=== PATIENT | female | born 1955 | race Caucasian/White ===

== ENCOUNTER 2017-02-19 08:57 | Day surgery (SDC) | payer BC ==
[~2017-02-19] VITALS: Ht 160 cm; Wt 103.8 kg
--- NOTE | 2017-02-22 08:43 | OR ---
ADMIT: 02/19/2017 RM/LOC: W.02 [facility] MR#: [id number] [address] [address] HAYES SLAUGHTER [address] [place] [address] Operative/Delivery Room Report SEX: F AGE: 62 : 1955 SURGERY DATE: 02/19/2017 SURGEON: Mohit Solano MD BUSINESS LINE MANAGER: Carli Gordon APRN PREOPERATIVE DIAGNOSIS: Lumbar stenosis with neurogenic claudication, L4-L5, L5-S1 with S1 radiculopathy. POSTOPERATIVE DIAGNOSIS: Lumbar stenosis with neurogenic claudication, L4-L5, L5-S1 with S1 radiculopathy. PROCEDURE: Minimally invasive lumbar laminectomy with medial undercutting of the facets where necessary for decompression of L4-L5 and L5-S1 with intraoperative microsurgical dissection technique with microscope use with intraoperative fluoroscopy and physician interpretation of film. DESCRIPTION OF PROCEDURE: After gaining informed consent, the patient was taken to operative theater, placed under general endotracheal anesthesia in a supine position and turned prone on a [place] table. All pressure points purposely padded prior to performing the procedure. She was prepped and draped in sterile fashion. A time-out was utilized to ascertain the correct site and side of surgery as well as other pertinent patient historical information. Counts were obtained at the beginning and the end of the case with no change betwixt the two. Antibiotics were given within 1 hour of incision. Fluoroscope was brought into the field and the L5 level was delineated from the left. A stab incision was fashioned and then the sequentially dilating tubular retractor system was then passed down through this incision to the top of L5, then wended to L4 and S1. This was then docked at the L5-S1 level. The microscope was brought in the field and the rest of the case was done with microsurgical dissection technique. Various curettes, rongeurs, and a high- speed drill were used to fashion a laminectomy, cutting out towards the medial aspect of the facet at L5-S1, taking this down to the ligamentum flavum which was resected, there was large synovial cyst that was resected over this area as well. Once this was completed, I was able to sound out into the neural foramen. At this point, the tube was wended contralaterally and the lamina and facet was undercut resecting ligamentum flavum as widely as necessary to be able to sound into the neural foramen revealing what appeared to be patent transition for the nerve. At this point, the tube was wended up to L4-L5 region under similar fashion. With various curettes, rongeurs, and a high- speed drill, a laminectomy was fashioned with undercutting the facets, resecting ligamentum flavum, resecting out widely contralaterally as well as ipsilaterally, being able to sound into the neural foramen with no sign of further compressive etiology. Pristine hemostasis was obtained and attention was turned to closure. Each side of the paraspinous musculature was injected with 10 mL of 0.5% Marcaine and then the wound was closed with simple inverted ADMIT: 02/19/2017 RM/LOC: W.02 [facility] MR#: [id number] [address] [place] [id number] [place] [address] Operative/Delivery Room Report SEX: F AGE: 62 : 1955 interrupted 2-0 Vicryl and subcuticular 3-0 Stratafix on the skin. Ms. Gordon assisted with suction, retraction, and closure at the end of the case. COMPLICATIONS: None. ESTIMATED BLOOD LOSS: Charted. SPECIMEN: Synovial cyst. DISPOSITION: Extubated and taken to postanesthesia care unit. Mohit Solano MD/ jayson JOB #: [id number] CC: Mohit Solano, Attending Physician Sebastian Singh, Family Physician
[2017-03-04] MEDS ORDERED: FLEXERIL DPS5 MG PO (13:42)
[2017-03-04] MEDS ORDERED: ULTRAM DPS50 MG PO (13:42)
[2017-03-04] MEDS ORDERED: HYDROCODON-ACE1 EAC4 PO (13:42)
[2017-03-04] MEDS ORDERED: LEXAPRO DPS10 MG PO (13:42)
[2017-03-04] MEDS ORDERED: COZAAR DPS50 MG PO (13:43)
[2017-03-04] MEDS ORDERED: LASIX DPS40 MG PO (13:43)
[2017-03-04] MEDS ORDERED: LIPITOR DPS20 MG PO (13:43)
[2017-03-04] MEDS ORDERED: COREG DPS6.25 MG PO (13:43)
[2017-03-04] MEDS ORDERED: KLOR-CON M2020 ME1 PO (13:43)
[2017-03-04] MEDS ORDERED: Z-PACK PO (13:44)
[2017-03-04] MEDS ORDERED: FLONASE 0.05% D16 GM NS (13:44)
[2017-03-04] MEDS ORDERED: SYMBICORT160 MCG/6 IH (13:44)
== END 2017-02-19 18:23 | disposition home or self-care (01) ==
LOC: SSS 08:57 → WOR 08:57 → UNDOADMOB 08:57 → WOR 08:57 → EDSTATUS 16:05 → SSS 18:23
PROC: 01NB0ZZ Release Lumbar Nerve, Open Approach (ICD-10-PCS; principal; 2017-02-19)
DX: M48.06 Spinal stenosis, lumbar region (principal); M54.17 Radiculopathy, lumbosacral region; M51.26 Other intervertebral disc displacement, lumbar region; F17.200 Nicotine dependence, unspecified, uncomplicated; Z88.6 Allergy status to analgesic agent; Z90.49 Acquired absence of other specified parts of digestive tract; Z90.710 Acquired absence of both cervix and uterus; M71.38 Other bursal cyst, other site

== ENCOUNTER 2017-03-01 16:52 | Observation (INO) | payer BC ==
[~2017-03-01] VITALS: Ht 160 cm; Wt 101.5 kg
--- NOTE | ~2017-03-01 | ECH ---
Transthoracic Echocardiography Report (TTE) Demographics Patient Name LEONEL WILKINSON, Date of Study 03/02/2017 HAYES Wilson Patient Number [id number] Visit Number [id number] Date of 1955 Room Number 409 Gender Female Number Age 62 year(s) Referring Hung Michelle MD Professional Architect Hawa Bliss Physician Francisco Serrano MD [facility] Physician Interpreting Kira Banegas MD [employer] Department Chair Physician Supervising Ordering Rashad Mari MD/MLP Physician Nurse Stress Stogie Packer Conclusions Summary Technically adequate exam. The estimated left ventricular ejection fraction is 60-65%. There is trivial aortic regurgitation by color Doppler. Mild tricuspid regurgitation by color Doppler. There is mild pulmonary hypertension. The pulmonary pressure (RVSP) is 41 mmHg. Procedure Type of Study TTE procedure:Echo Complete SF. Procedure Date Date: 03/02/2017 Start: 01:47 PM Technical Quality: Adequate visualization Indications:Chest pain, Congestive heart failure, Hypertension and edema. Appropriate Use Criteria: 9 Height: 63 inches Weight: 235 pounds BSA: 2.07 m Rhythm: NSR HR: 80 bpm BP: 138/73 mmHg M-Mode/2D Measurements LV Diastolic Dimension: 5.3 cm LV Systolic Dimension: 2.97 cm LV Septum Diastolic: 0.82 cm LV PW Diastolic: 0.81 cm AO Root Dimension: 2.63 cm Cardiac Output: 5.33 l/min LA Dimension: 2.89 cm Cardiac Index: 2.57 l/min*m RV Diastolic Dimension: 2.92 cm LA volume index: 32 ml/m LVOT: 1.9 cm LVOT VTI: 23.49 cm RV Base: 3.9 cm LV Stroke volume: 66.57 ml RV Mid: 2.8 cm LV Stroke volume index: 32.16 ml/m TAPSE: 2.7 cm TDI-S': 14 cm/s Doppler Measurements AV Peak Velocity: 1.6 m/s MV Peak E-Wave: 1.12 m/s AV Peak Gradient: 10.24 mmHg MV Peak A-Wave: 0.84 m/s AV Mean Gradient: 6.2 mmHg MV E/A Ratio: 1.34 LVOT Peak Velocity: 1.02 m/s MV P1/2t: 48.5 msec AV Area (Continuity):1.66 cm MV Deceleration Time: 165.8 msec TR Velocity:3.1 m/s MV Area (PHT): 4.54 cm TR Gradient:38.44 mmHg PV Peak Velocity: 1.14 m/s Estimated RAP:3 mmHg PV Peak Gradient: 5.22 mmHg Estimated RVSP: 41 mmHg Estimated PASP: 41.44 mmHg E' Septal Velocity: 0.11 m/s A' Septal Velocity: 0.1 m/s E' Lateral Velocity: 0.1 m/s A' Lateral Velocity: 0.08 m/s RA Area: 15.42 cm Findings Left Ventricle Normal left ventricle size and function. Diastolic assessment reveals normal relaxation. Right Ventricle Normal right ventricle structure and function. Left Atrium Normal left atrial size. Right Atrium Normal right atrial size. Mitral Valve Normal mitral valve structure and function. Trivial mitral regurgitation by color Doppler. Aortic Valve The aortic valve is mildly sclerotic. There is trivial aortic regurgitation by color Doppler. Tricuspid Valve Normal tricuspid valve structure and function. Mild tricuspid regurgitation by color Doppler. There is mild pulmonary hypertension. The pulmonary pressure (RVSP) is 41 mmHg. Pulmonic Valve The pulmonic valve is not well visualized. Pericardial Effusion No evidence of pericardial effusion. Miscellaneous Visualized portions of the aortic root and ascending aorta appear normal in size. Pleural Effusion No evidence of pleural effusion. Signature
[2017-03-04] MEDS ORDERED: LEXAPRO DPS10 MG PO (13:42)
[2017-03-04] MEDS ORDERED: FLEXERIL DPS5 MG PO (13:42)
[2017-03-04] MEDS ORDERED: HYDROCODON-ACE1 EAC4 PO (13:42)
[2017-03-04] MEDS ORDERED: ULTRAM DPS50 MG PO (13:42)
[2017-03-04] MEDS ORDERED: LASIX DPS40 MG PO (13:43)
[2017-03-04] MEDS ORDERED: LIPITOR DPS20 MG PO (13:43)
[2017-03-04] MEDS ORDERED: KLOR-CON M2020 ME1 PO (13:43)
[2017-03-04] MEDS ORDERED: COREG DPS6.25 MG PO (13:43)
[2017-03-04] MEDS ORDERED: COZAAR DPS50 MG PO (13:43)
[2017-03-04] MEDS ORDERED: SYMBICORT160 MCG/6 IH (13:44)
[2017-03-04] MEDS ORDERED: Z-PACK PO (13:44)
[2017-03-04] MEDS ORDERED: FLONASE 0.05% D16 GM NS (13:44)
--- NOTE | 2017-03-09 10:17 | ER ---
ADMIT: 03/01/2017 RM/LOC: 409 [facility] MR#: [id number] [address] [address] HAYES SLAUGHTER [address] [place] [address] Emergency Room Report SEX: F AGE: 62 : 1955 DATE: 03/01/2017 ADDENDUM: CHIEF COMPLAINT: Shortness of breath. HISTORY OF PRESENT ILLNESS: This is a 62-year-old female who had a cyst removed between her vertebrae 10 days ago. She went home. The surgery was outpatient. She went home immediately afterwards. She said she has been doing fine until just yesterday. She said she started becoming more short of breath especially with exertion, noticed that her legs were swelling, so came into the ER. COURSE IN THE EMERGENCY ROOM: A CBC, CMP, troponin, BNP, i-STAT creatinine, CTA of her chest, and EKG were done. EKG is negative for any acute findings, over-read by Dr. Smith. CTA showed edema with some effusion. CBC was normal except for a white count of 13.1 and hemoglobin 11.4. CMP is normal except for albumin of 3.0. Troponin was normal. Her proBNP is 1909. I did speak with Dr. Solorzano regarding this patient for Dr. Singh, he is telecommunications repairer for him. We are going to admit. CLINICAL IMPRESSION: 1. Acute onset of congestive heart failure. 2. Hypertension. DISPOSITION: She is stable at this time and still on room air. ZURDO Moses / Mukul Juan MD / modl JOB #: [id number] CC: Sebastian Singh MD, Attending Physician Sebastian Singh MD, Family Physician
--- NOTE | 2017-03-15 14:23 | CO ---
ADMIT: 03/01/2017 RM/LOC: 409 [facility] MR#: [id number] [address] [address] HAYES SLAUGHTER [address] [place] [address] Consultation SEX: F AGE: 62 : 1955 DATE OF CONSULTATION: 03/02/2017 ATTENDING PHYSICIAN: Sebastian Singh CONSULTING PHYSICIAN: Lee Persaud MD REASON FOR CONSULT: 1. Edema and increased fluid retention. 2. Shortness of breath. This is Annie Khalil RN, scribing for Dr. Lee Persaud. HISTORY OF PRESENT ILLNESS: Hayes is a very pleasant 62-year-old female, whom I have been asked to see in Cardiology consultation by Dr. Singh for increased shortness of breath, orthopnea, and peripheral edema. She has no prior history of coronary artery disease. She is treated by primary care for hypertension and hyperlipidemia, and does have a history of tobacco use currently. She has significant family history of premature coronary artery disease with her brother having a myocardial infarction in his early 50s. Her father had two bypass surgeries in his 80s. She also reports a sister with history of ablation. Hayes presented to [facility] on the with complaints of increased shortness of breath. She had a back surgery about 10 days ago with a cyst removal and laminectomy, and at that time, tolerated the procedure well. She states that overall she felt that she had done well up until Wednesday. She then began experiencing increased nausea, and swelling in her lower extremity. On Wednesday, she felt lightheaded and dizzy with increased shortness of breath and had severe headache. She also describes one episode of chest discomfort lasting less than a minute and that has not returned. On Wednesday, her shortness of breath and orthopnea were so severe along with peripheral edema that she and her felt that she needed to proceed to the emergency room as she thought she was going to pass out from her severe symptoms. She was given 40 mg IV Lasix and diuresed quite a bit, and stated she did note improvement of her symptoms with that. She had about 3600 mL out, and of note, her weight on admit was 7 pounds up from 10 days prior. CTA of chest was performed, which was negative for pulmonary embolism. It did showed moderate pleural effusion, and some pulmonary edema as well. Kidney function is stable. Cardiac enzymes with troponin have been negative x3. Her white count is mildly elevated at 15.8, and proBNP is 3300. Currently, she is still nauseous and short of breath, and is still experiencing orthopnea, but does report improvement. She still has significant peripheral edema currently. PAST MEDICAL HISTORY: 1. Hypertension. 2. Hyperlipidemia. 3. Tobacco use. 4. Osteoarthritis. 5. Recent laminectomy. 6. Depression. ADMIT: 03/01/2017 RM/LOC: 409 [facility] MR#: [id number] [address] [address] LEONEL WILKINSON HAYES [address] [place] [address] Consultation SEX: F AGE: 62 : 1955 7. Cataracts. PAST SURGICAL HISTORY: Includes: 1. Laminectomy with cyst removal 10 days ago. 2. Hysterectomy. 3. C-sections x2. 4. Appendectomy. ALLERGIES: NO KNOWN MEDICATION ALLERGIES. MEDICATIONS: Current medications include: 1. Hyzaar 50/12.5 daily. 2. KCl 40 p.o. b.i.d. 3. Lexapro 10 daily. 4. Lovenox 40 mg subcu daily. 5. Habitrol patch 14 mg daily. 6. Lasix 20 mg IV b.i.d. 7. Zithromax 500 mg IV q.24 hours. FAMILY HISTORY: Positive family history of premature coronary artery disease in a brother who had an PA at the age of 52. Also, family history of coronary disease in father who had bypass x2 in his 50s. Sister who had an arrhythmia ablation that she is unsure of what kind in the past x2. Denies family history of stroke or diabetes. SOCIAL HISTORY: Hayes denies any special diet. She drinks coffee and soda on a regular basis. Denies any alcohol. She has occasional marijuana use. She is . 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 REVIEW OF SYSTEMS: GENERAL: Reports increased fatigue since Wednesday, which is about four days ago. Increased weight gain over the last 10 days of 7 pounds. No recent fevers. EYES: She has beginnings of cataracts. She wears corrective lenses. Denies glaucoma or vision changes. ENT: Denies hearing loss or problems with nose, mouth or throat. RESPIRATORY: Current admission with orthopnea, pulmonary edema, and shortness of breath. Denies any hemoptysis or obstructive sleep apnea. GASTROINTESTINAL: Denies heartburn or difficulty swallowing. No change in bowel habits. Denies dark or bloody stools. No history of ulcers, hiatal hernia, or gallbladder or liver disease. GENITOURINARY: Denies dysuria, hematuria, nocturia, urinary tract infection, or kidney stones. Denies history of renal insufficiency or failure. MUSCULOSKELETAL: History of osteoarthritis, muscle and joint pains, recent back surgery. ENDOCRINE: Denies history of thyroid dysfunction or diabetes. HEMATOLOGIC: Denies history of anemia, easy bruising, or cancer. NEUROLOGIC: Denies chronic headaches, dizziness, syncope, stroke, seizures or numbness or tingling. ADMIT: 03/01/2017 RM/LOC: 409 [facility] MR#: [id number] [address] [address] HAYES SLAUGHTER [address] [place] [address] Consultation SEX: F AGE: 62 : 1955 PSYCHIATRIC: History of depression. PHYSICAL EXAMINATION: VITAL SIGNS: Blood pressure 138/73, heart rate 66, respirations 13, temperature 98.5, oxygenation 92% on room air. GENERAL: Alert, a little bit dyspneic. SKIN: [place], warm and dry. EYES: Sclerae clear. No xanthelasmas. ENT: Oral mucosa is pink and moist. No jugular venous distention or carotid bruits. CHEST: Respirations are even and unlabored. Lungs are clear to auscultation. HEART: Regular rate and rhythm. Normal S1, S2. No murmurs, rubs or gallops. ABDOMEN: Soft and nontender. MUSCULOSKELETAL: Gait is normal. EXTREMITIES: Peripheral pulses palpable. No clubbing, cyanosis. Pitting edema in the posterior thigh. PSYCHIATRIC: Alert and oriented. Mood and affect are appropriate. DIAGNOSTIC DATA: CTA of chest on 03/01 was negative for PE, showed moderate pleural effusion. Sodium 140, potassium 3.5, BUN 11, creatinine 1.0, glucose 109, CK 80, MB 1.2, troponin less than 0.015 x 3, proBNP 3325, white blood cell count 15.8, hemoglobin 11.7, hematocrit 37.0, platelets 333. ASSESSMENT AND PLAN: 1. Congestive heart failure, new diagnosis. 2. Hypertension. 3. Recent back surgery. 4. Tobacco use. Hayes is a pleasant 62-year-old female with no prior cardiac history. She had recent back surgery. Progressive shortness of breath, orthopnea, and mild chest pain in the last four days. She did come in with increased shortness of breath. She has history of hypertension. Her BNP is elevated. She has positive peripheral edema. Chest x-ray also shows pulmonary edema. This improved with initial Lasix. Her symptoms worsened since back surgery about 10 days ago, but worse on Wednesday. I question if there was some postop fluid retention. I recommend continuing diuresis, and we will increase her Lasix to 40 mg IV b.i.d. and hold her hydrochlorothiazide at this time given increased Lasix dosing. She ADMIT: 03/01/2017 RM/LOC: 409 [facility] MR#: [id number] [facility] [address] [place] [address] HAYES SLAUGHTRE [address] [place] [address] Consultation SEX: F AGE: 62 : 1955 will continue her other blood pressure medications. Further evaluation with echocardiogram for wall motion abnormalities, valvular abnormalities, or decreased ejection fraction, and I will continue diuresis. Ischemic evaluation with stress or cath based on echo result in the future. I will add beta carla as she improves. Thank you for the consultation. "I have read and agree with the documentation that has been completed regarding this visit. By signing this record, I attest that the documentation was completed in my physical presence and is an accurate record of the encounter." Annie Khalil RN / Lee Persaud MD / jayson JOB #: [id number] CC: Sebastian Singh, Attending Physician Sebastian Singh, Family Physician
--- NOTE | 2017-03-17 08:32 | HP ---
ADMIT: 03/01/2017 RM/LOC: 409 [facility] MR#: [id number] [address] [address] HAYES SLAUGHTER [address] [place] [address] History and Physical SEX: F AGE: 62 : 1955 DATE OF SERVICE: 03/02/2017 CHIEF COMPLAINT: Chest pain, shortness of breath, sudden onset edema. HISTORY OF PRESENT ILLNESS: Hayes is a very pleasant, 62-year-old white female, who is now about 10 days postop from a L4-L5 and L5-S1 laminectomy performed on an outpatient basis with Dr. Mohit Solano who, presented to the [facility] Emergency Department with 1 to 2 days of sudden onset of shortness of breath, severe lower extremity swelling, and edema, vague substernal chest pain radiating to her back, a mild cough, and sinus congestion, nausea, and right upper quadrant abdominal discomfort. Her ER workup showed a mildly elevated proBNP, a mildly elevated white blood cell count of 13,000, and elevated proBNP of 1900, and a negative chest CT for pulmonary embolus. She was given 40 mg of intravenous Lasix in the overnight period and was subsequently admitted to the hospital. In the overnight period, she notes that the swelling in her legs has improved and she feels like she is breathing much better. She denies any chest pain at the present time. She denies any abdominal pain at the present time. She notes that she is having some sinus pressure, mild headaches, and a little bit of mildly productive cough. She has not had any fevers to speak of. PAST MEDICAL HISTORY: Remarkable for: 1. Hypertension. 2. Hyperlipidemia. 3. Depression. 4. Obesity. 5. General herpes. 6. History of chronic obstructive pulmonary disease. 7. Vaginal enterocele. 8. Lumbar disc disease. 9. Stress incontinence. 10.Tobacco abuse. PAST SURGICAL HISTORY: 1. Lumbar epidural steroid injection on 06/17/2016, left side. 2. Lumbar laminectomy L4-L5 and L5-S1 on 02/19/2017. 3. Abdominal hysterectomy in 2007 for benign disease. 4. Bilateral oophorectomy in 2007. 5. Bilateral salpingectomy in 2007. 6. Appendectomy in 1965. 7. Bladder injury, status post hysterectomy with cystostomy in 2007. 8. sections x2 in 1985 and 1986. MEDICATIONS: Her outpatient medications include: 1. Lexapro 10 mg daily. 2. ProAir two puffs every 4 hours as needed for cough and wheeze. 3. Hyzaar 50/12.5 one tab daily. 4. Aspirin 81 mg daily. ADMIT: 03/01/2017 RM/LOC: 409 [facility] MR#: [id number] [address] [address] HAYES SLAUGHTER [address] [place] [address] History and Physical SEX: F AGE: 62 : 1955 5. Lipitor 20 mg daily. ALLERGIES: SHE IS ALLERGIC TO MORPHINE. SOCIAL HISTORY: She is a smoker, she smokes about half pack per day. 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 She admits to occasional alcohol use. She is to Rishi, who accompanies her in the hospital room today. FAMILY HISTORY: Noncontributory. REVIEW OF SYSTEMS: As per HPI. All others were reviewed and were negative. PHYSICAL EXAMINATION: VITAL SIGNS: Blood pressure presently is 138/73, pulse 66, respirations 13, temp 98.5, O2 saturation is 92% on room air. It should be noted in the overnight period she did have pressures as high as the 190 systolic and she was given a dose of Lopressor for this. HEENT: Normocephalic and atraumatic. GENERAL: She is awake, alert, in no acute distress, sitting upright in the bedside chair. HEART: Regular rate and rhythm. No murmurs, gallops, or rubs. LUNGS: Clear to auscultation bilaterally. ABDOMEN: Obese, soft, nontender, nondistended. No rebound, guarding, or masses. EXTREMITIES: She has 1 to 2+ pitting lower extremity edema. LABORATORY AND X-RAY DATA: Cardiac enzymes and troponin are negative x3. EKGs also negative for any hyperacute ST or T-wave changes x3. [place] [address], platelets are 333. CMP this morning shows a sodium of 140, potassium mildly depressed at 3.5, chloride 101, CO2 of 30, BUN 11, glucose 109, creatinine 1. LFTs are unremarkable. Repeat proBNP this morning is increased from 1900 up to 3300. Chest x-ray shows bilateral mild diffuse interstitial thickening and ground-glass opacities, pulmonary edema versus atypical infection. She also has small bilateral pleural effusions. Again, chest CT done on admission was negative for pulmonary embolus. ASSESSMENT: 1. Chest pain. 2. New onset pulmonary and peripheral edema. 3. Right upper quadrant pain. ADMIT: 03/01/2017 RM/LOC: 409 [facility] MR#: [id number] [address] [place] [phone] [facility] [place] [address] History and Physical SEX: F AGE: 62 : 1955 4. Cough. 5. Hypertension. 6. Hyperlipidemia. 7. Chronic obstructive pulmonary disease. 8. Chronic tobacco abuse. 9. Depression. PLAN: Plan will be to obtain an echocardiogram, viral respiratory panel, right upper quadrant ultrasound, and a venous Doppler of her lower extremities. We will get an UMAIR consult. I am going to start her on azithromycin to cover for any potential atypical pulmonary infection. Further management will be dependent on Hayes's clinical course. Sebastian Singh MD/ jayson JOB #: [id number] CC: Sebastian Singh, Attending Physician Sebastian Singh, Family Physician
== END 2017-03-03 15:49 | disposition home or self-care (01) ==
LOC: ER 16:52 → 4PCU 19:35
PROVIDERS: ADMIT Family Medicine
DX: I11.0 Hypertensive heart disease with heart failure (principal); I50.9 Heart failure, unspecified; E78.5 Hyperlipidemia, unspecified; J44.9 Chronic obstructive pulmonary disease, unspecified; F32.9 Major depressive disorder, single episode, unspecified; J30.9 Allergic rhinitis, unspecified; F17.210 Nicotine dependence, cigarettes, uncomplicated; E66.9 Obesity, unspecified; Z98.890 Other specified postprocedural states; Z90.710 Acquired absence of both cervix and uterus; Z90.49 Acquired absence of other specified parts of digestive tract; Z79.82 Long term (current) use of aspirin; Z79.899 Other long term (current) drug therapy; Z88.6 Allergy status to analgesic agent